=== PATIENT | female | born 1985 | race Two or more races ===

== ENCOUNTER 2020-02-11 22:20 | Emergency (ER) | payer SELFPAY ==
[~2020-02-11] VITALS: Ht 167.6 cm; Wt 113.0 kg
[2020-02-11 22:34] VITALS: BP 161/111
[2020-02-11] MEDS ORDERED: TETANUS, DIPHTHERIA, PERTUSSIS VAC/PF 0.5ML (>7YR OLD) IM ONE (22:45)
[2020-02-11] MEDS ORDERED: BACITRACIN ZINC OINT UDPKT TOP ONE (22:45)
== END 2020-02-11 23:09 | disposition home or self-care (01) ==
LOC: ER 22:20
DX: I83.811 Varicose veins of right lower extremity with pain (principal); Z23 Encounter for immunization
CPT/HCPCS: 90471; 90715; 99283